=== PATIENT | female | born 1940 | race Caucasian/White ===

== ENCOUNTER 2018-04-23 12:37 | Outpatient (CLI) | payer MEDICARE ==
--- NOTE | 2018-04-23 13:19 | RAD ---
CHEST PA AND LATERAL: History: 78-year-old female with history of dyspnea. FINDINGS: Heart size is within upper range of normal. There are increased linear and interstitial markings note d bilaterally throughout both lungs. There is some biapical pleural thickening. No confluent pneumoni a. No overt pleural effusion. IMPRESSION: Increased linear and interstitial markings noted bilaterally, these have more the appearance or chron ic interstitial disease but certainly some acute nonspecific interstitial component could have a charito lar radiographic appearance. No old studies. Atherosclerosis of the aorta. POS: [facility]
== END 2018-04-23 12:38 | disposition home or self-care (01) ==
LOC: RAD 12:37
PROVIDERS: ATTEND Internal Medicine
DX: R06.00 Dyspnea, unspecified (principal); I70.0 Atherosclerosis of aorta
CPT/HCPCS: 36415; 71046; 82787; 83520; 86038; 86200; 86225; 86256

== ENCOUNTER 2018-06-26 08:53 | Outpatient (CLI) | payer MEDICARE | END 2018-06-26 08:54 | disposition home or self-care (01) | LOC: CP 08:53 | PROVIDERS: ATTEND Internal Medicine | DX: J84.9 Interstitial pulmonary disease, unspecified (principal) | CPT/HCPCS: 94010; 94729 ==

== ENCOUNTER 2020-08-24 10:59 | Outpatient (CLI) | payer MEDICARE | END 2020-08-24 11:00 | disposition home or self-care (01) | LOC: BICRAD 10:59 | PROVIDERS: ATTEND Internal Medicine Critical Care Medicine | DX: R06.00 Dyspnea, unspecified (principal); J84.9 Interstitial pulmonary disease, unspecified | CPT/HCPCS: 71046 ==